=== PATIENT | female | born 2000 | race Two or more races ===

== ENCOUNTER 2018-10-04 17:23 | Emergency (ER) | payer MEDICAID ==
--- NOTE | 2018-10-04 17:39 | EDM.PDOC ---
ED HPI GENERAL MEDICAL PROBLEM - General Stated Complaint: BACK PAIN Time Seen by Provider: 10/04/18 17:30 Source of Information: Reports: Patient - History of Present Illness INITIAL COMMENTS - FREE TEXT/NARRATIVE: pt c/o low back pain X 3 days, states she woke up with this, describe dull localized lower back pain non-radiating , denies injury or heavy lifting or trauma or any associated neuro/ urinary/ [employer] INVE[employer]IGATOR/GI sx or concerns. denies also Hx of similar problems. ED ROS GENERAL - Review of Systems Review Of Systems: See Below Constitutional: Reports: No Symptoms Respiratory: Reports: No Symptoms Cardiovascular: Reports: No Symptoms GI/Abdominal: Reports: No Symptoms Neurological: Reports: No Symptoms ED EXAM, GENERAL - Physical Exam Exam: See Below Exam Limited By: No Limitations General Appearance: Alert, Mild Distress Respiratory/Chest: No Respiratory Distress, Lungs Clear, Normal Breath Sounds, No Accessory Muscle Use, Chest Non-Tender Cardiovascular: Normal Peripheral Pulses, Regular Rate, Rhythm, No Edema GI/Abdominal: Normal Bowel Sounds, Soft, Non-Tender Extremities: Normal Inspection, Normal Range of Motion, Other (pt has tenderness all across lower back, Spine has full ROM. ) Neurological: Alert, Oriented, CN II-XII Intact Course - Vital Signs Text/Narrative:: pt has muscular low back pain and supportive mng was recommended. valium 10 / toradol were given here. Rx on flexeril 20 mg was prescribed. Departure - Departure Time of Disposition: 17:39 Disposition: Home, Self-Care 01 Clinical Impression: Low back pain - Discharge Information Referrals: PCP,None [Primary Care Provider] -
[2018-10-04] MEDS ORDERED: diazePAM 5 MG/ML MDV IM ONE (17:40)
[2018-10-04] MEDS ORDERED: Ketorolac 60 MG/2 ML SDV IM ONE (17:40)
== END 2018-10-04 18:25 | disposition home or self-care (01) ==
LOC: FB.ED 17:23
DX: M54.5 Low back pain (principal)
CPT/HCPCS: 96372; 99283; A9270; J1885